=== PATIENT | female | born 1975 | race Caucasian/White ===

== ENCOUNTER 2016-11-23 06:31 | Emergency (ER) | payer MEDICAID | END 2016-11-23 09:42 | disposition home or self-care (01) | LOC: D.ER 06:31 | DX: G43.909 Migraine, unspecified, not intractable, without status migrainosus (principal); F32.9 Major depressive disorder, single episode, unspecified; M79.7 Fibromyalgia; F17.200 Nicotine dependence, unspecified, uncomplicated ==

== ENCOUNTER 2016-11-23 10:08 | Emergency (ER) | payer MEDICAID | END 2016-11-23 11:25 | disposition home or self-care (01) | LOC: D.ER 10:08 | DX: R51 Headache (principal) ==

== ENCOUNTER 2017-02-04 05:48 | Day surgery (SDC) | payer MEDICAID ==
[2017-02-03 12:04] LABS: HEMOGLOBIN 14.1 g/dL (12-16); MCH 29.6 pg (26.0-34.0); MCHC 34.4 g/dL (31.0-37.0); MEAN PLATELET VOLUME 8.6 fL (7.4-10.4); RBC 4.77 10x6/uL (4.00-5.40); RDW 14.7 % (11.5-14.5); WBC 6.2 10x3/uL (4.8-10.8)
[~2017-02-04 05:48] MED LIST: BUTALB-APAP-CA1 EACH PO; CYCLOBENZAPRINE10 MG PO; LEXAPRO20 MG PO
[2017-02-04 06:45] VITALS: BP 131/85; BMI 26.7
--- NOTE | 2017-02-04 14:41 | NUR ---
1300 IV DC WITH CATHER TIP INTACT
--- NOTE | 2017-02-04 14:43 | NUR ---
[id number] STILL WAITING TO TALK TO DR HOUSTON, OFFICE CALLED AND PAGED, [id number] DR HOUSTON CALLED BACK, PT JUST LEFT, ASKED FOR PT PHONE NUMBER SO HE COULD CALL HER
--- NOTE | 2017-03-10 09:17 | OP ---
PATIENT NAME: KATY BLAIR MEDICAL RECORD: [id number] :75 LOCATION:[facility] ADMISSION DATE: SURGEON: ARIEL HOUSTON MD DATE OF OPERATION: 02/04/2017 PREOPERATIVE DIAGNOSIS: Disc herniation with foraminal stenosis and spinal stenosis at L4-L5, left. POSTOPERATIVE DIAGNOSIS: Disc herniation with foraminal stenosis and spinal stenosis at L4-L5, left. PROCEDURE: Lumbar laminectomy, medial facetectomy, and foraminotomy at L4-L5, left with discectomy with METRx retractor. DESCRIPTION AND TECHNIQUE: After induction of general endotracheal anesthesia, the patient was rolled prone on a Mateus frame. Lumbar spine was prepped and draped in usual sterile fashion. Fluoroscopic x-ray and spinal needle localized at L4-L5 interspace on the left side that was confirmed with fluoroscopic x-ray. A stab incision was created with #11 blade and series of dilators was used to advance the METRx retractor to the L4-L5 interspace on the left side. Flow was confirmed with fluoroscopic x-ray. A [employer] Fidel drill and microscope were used to perform laminotomy, laminectomy, medial facetectomy and a foraminotomy at L4-L5 on the left. Hypertrophied ligamentum flavum was removed with Cloward rongeurs. Following this, there is an obvious disc herniation compressing the L5 nerve root. This was removed with pituitary rongeurs. Further fragments were removed from the disc space. Spinal canal was swept with a Ildefonso elevator, no other fragments were recovered. Meticulous hemostasis was maintained throughout the wound. Wound was irrigated with copious amounts of Ancef irrigant solution. The fascia was closed with a 2-0 Vicryl suture, the subdermal layer was closed with 3-0 Vicryl suture. The skin was closed with Steri-Strips and benzoin. A sterile dressing was applied to the wounds. The patient was awakened in good condition and taken to recovery. All counts were reported as correct. Estimated blood loss was minimal. TRANSINT:[id number] Voice Confirmation ID: [id number] DOCUMENT ID: [id number] ARIEL HOUSTON MD at 0917 CC: [id number] DICTATION DATE: 03/08/17 1617 MASSAGE OPERATOR: 03/08/172210 [facility] 02/04/[address] [facility] [address] [place] [address]
== END 2017-02-04 13:25 | disposition home or self-care (01) ==
LOC: D.OPS 05:48
PROVIDERS: Anesthesiology
DX: M54.16 Radiculopathy, lumbar region (principal); M48.06 Spinal stenosis, lumbar region; F17.200 Nicotine dependence, unspecified, uncomplicated; Z01.812 Encounter for preprocedural laboratory examination

== ENCOUNTER → 2018-05-23 16:16 | Outpatient (CLI) | payer MEDICAID | END | disposition home or self-care (01) | LOC: D.MRI 16:16 | DX: M54.16 Radiculopathy, lumbar region (principal) ==

== ENCOUNTER 2019-12-20 14:45 | Emergency (ER) | payer MEDICAID ==
[~2019-12-20] VITALS: Ht 170.2 cm; Wt 77.3 kg
[2019-12-20 14:55] VITALS: Ht 170.2 cm; Wt 77.3 kg
[2019-12-20] MEDS ORDERED: GABAPENTIN300 MG PO (14:56)
[2019-12-20 15:45] LABS: HEMATOCRIT 48.9 % (36.0-48.0); HEMOGLOBIN 16.6 g/dL (12-16); LYMPHOCYTES 35.8 % (15-50); MCH 28.8 pg (26.0-34.0); MCHC 33.9 g/dL (31.0-37.0); MCV 84.9 fL (80.0-100.0); MEAN PLATELET VOLUME 8.7 fL (7.4-10.4); NEUTROPHILS 57.6 % (40-80); RBC 5.76 10x6/uL (4.00-5.40); RDW 13.7 % (11.5-14.5); WBC 6.7 10x3/uL (4.8-10.8)
[2019-12-20 15:46] LABS: PLATELET COUNT 271 10x3/uL (130-400)
[2019-12-20 15:52] LABS: BILIRUBIN NEGATIVE (NEGATIVE); GLUCOSE NEGATIVE (NEGATIVE); KETONE LARGE mg/dL (NEGATIVE); NITRITE NEGATIVE (NEGATIVE); SPECIFIC GRAVITY 1.005 (1.005-1.020); UROBILINOGEN NORMAL (NORMAL)
[2019-12-20 15:52] LABS: CALC OSMOLALITY 273 mosm/kg (275-300); CALCIUM 9.3 mg/dL (8.5-10.1); CARBON DIOXIDE 20.6 mmol/L (21.0-32.0); CHLORIDE - SERUM 101 mmol/L (98-107); GLUCOSE 115 mg/dL (74-106); POTASSIUM - SERUM 3.7 mmol/L (3.5-5.1); SODIUM 137 mmol/L (136-145); UREA NITROGEN 10 mg/dL (7-18); eGFR NON AFRICAN AMERICAN 64 mL/min (90-120)
[2019-12-20 15:53] LABS: BACTERIA FEW /hpf (NEGATIVE); EPITHELIAL CELLS 0-5 /hpf (0-5); RED CELLS - URINE 0-5 /hpf (0-5); WHITE CELLS - URINE 0-5 /hpf (NEGATIVE)
[2019-12-20 15:55] LABS: HCG URINE NEGATIVE (NEGATIVE)
[2019-12-20 15:58] LABS: ALBUMIN 4.3 g/dL (3.4-5.0); ALKALINE PHOSPHATASE 71 U/L (30-120); ALT (SGPT) 25 U/L (10-68); AMYLASE - SERUM 43 U/L (25-115); BILIRUBIN - TOTAL 0.82 mg/dL (0.2-1.3); LIPASE 66 U/L (73-393); PROTEIN - SERUM 8.1 g/dL (6.4-8.2)
[2019-12-20 15:59] LABS: TROPONIN-I < 0.017 ng/mL (0.000-0.060)
[2019-12-20] MEDS ORDERED: LEVAQUIN750 MG PO (16:49)
[2019-12-20] MEDS ORDERED: FLAGYL500 MG PO (16:49)
[2019-12-20] MEDS ORDERED: ZOFRAN ODT4 MG/UDTAB PO (16:49)
[2019-12-20 17:10] VITALS: BP 140/71
== END 2019-12-20 17:11 | disposition home or self-care (01) ==
LOC: D.ER 14:45
PROVIDERS: Emergency Medicine
DX: R10.13 Epigastric pain (principal); R11.2 Nausea with vomiting, unspecified